=== PATIENT | female | born 1990 | race Caucasian/White ===

== ENCOUNTER 2017-02-20 00:19 | Emergency (ER) | payer MEDICAID ==
[~2017-02-20] VITALS: Ht 170.2 cm; Wt 97.0 kg
[2017-02-20 02:42] LABS: BASOPHILS % 0.7 % (0.0-2.0); EOSINOPHILS % 1.1 % (0.0-5.0); HEMATOCRIT. 34.5 % (36.0-48.0); HEMOGLOBIN. 11.8 g/dL (12.0-16.0); LYMPHOCYTES % 32.8 % (20.0-50.0); MEAN CORPUSCULAR HEMOGLOBIN 28.5 pg (28.0-32.0); MEAN CORPUSCULAR VOLUME 83.1 fL (81.0-99.0); MONOCYTES % 7.8 % (2.0-8.0); NEUTROPHILS % 57.6 % (40.0-76.0); PLATELET 191 x1000/uL (130-400); RED BLOOD CELL COUNT 4.15 mill/uL (4.2-5.4); RED CELL DISTRIBUTION WIDTH 12.9 % (11.6-14.6)
[2017-02-20 02:43] LABS: CHLORIDE 108 mEq/L (98-107)
[2017-02-20 02:59] LABS: CARBON DIOXIDE 23 mEq/L (21-32)
[2017-02-20 03:06] LABS: B-HCG QUANTITATIVE 95922 mIU/mL (<3)
[2017-02-20 04:41] VITALS: BP 110/65
== END 2017-02-20 05:09 | disposition home or self-care (01) ==
LOC: ER 02:44
DX: O20.0 Threatened abortion (principal); O99.511 Diseases of the respiratory system complicating pregnancy, first trimester; Z3A.08 8 weeks gestation of pregnancy; J45.909 Unspecified asthma, uncomplicated
CPT/HCPCS: 36415; 76801; 76817; 80048; 81025; 84702; 85025; 86850; 86900; 86901; 99285; Z7610

== ENCOUNTER 2017-06-02 08:32 | Observation (INO) | payer OTHER ==
[~2017-06-02] VITALS: Ht 170.2 cm; Wt 98.0 kg
== END 2017-06-02 10:10 | disposition home or self-care (01) ==
LOC: L&D 08:32
PROVIDERS: ADMIT Obstetrics & Gynecology; ATTEND Obstetrics & Gynecology
DX: O26.852 Spotting complicating pregnancy, second trimester (principal); Z3A.23 23 weeks gestation of pregnancy
CPT/HCPCS: 99281; G0378

== ENCOUNTER 2017-07-08 10:09 | Observation (INO) | payer OTHER ==
[~2017-07-08] VITALS: Ht 170.2 cm; Wt 101.6 kg
[2017-07-08 11:41] LABS: CLARITY URINE TURBID (CLEAR); COLOR URINE YELLOW (YELLOW); GLUCOSE URINE NEGATIVE (NEGATIVE); KETONES URINE NEGATIVE (NEGATIVE); LEUKOCYTE ESTERASE URINE 2+ (NEGATIVE); NITRITE URINE NEGATIVE (NEGATIVE); OCCULT BLOOD URINE NEGATIVE (NEGATIVE); PROTEIN URINE NEGATIVE (NEGATIVE); SPECIFIC GRAVITY URINE 1.022 (1.005-1.030); UROBILINOGEN URINE 0.2 E.U./dL (0.2-1.0)
== END 2017-07-08 12:10 | disposition left against medical advice (07) ==
LOC: L&D 10:09
PROVIDERS: ADMIT Specialist; ATTEND Specialist
DX: O26.893 Other specified pregnancy related conditions, third trimester (principal); R10.9 Unspecified abdominal pain; Z3A.28 28 weeks gestation of pregnancy
CPT/HCPCS: 81001; 82731; 99281; G0378